=== PATIENT | female | born 1940 | race Caucasian/White ===

== ENCOUNTER 2019-02-18 13:42 | Emergency (ER) | payer MEDICARE, OTHER, SELFPAY ==
[2019-02-18 13:43] VITALS: BP 113/60; PULSE 78; TEMP 36.8; O2SAT 94; BMI 34.7
[2019-02-18 13:46] VITALS: BP 114/53; BP 120/63; BP 131/64; PULSE 77; PULSE 80
--- NOTE | 2019-02-18 13:46 | EKG12_ITS ---
Test Reason : SYNCOPE Blood Pressure : / mmHG Vent. Rate : 072 BPM Atrial Rate : 072 BPM P-R Int : 188 ms QRS Dur : 086 ms QT Int : 406 ms P-R-T Axes : 044 013 080 degrees QTc Int : 444 ms Normal sinus rhythm Nonspecific T wave abnormality Abnormal ECG Confirmed by HEBER BARROS ([id number]), editor producer CIERA LOOMIS ([id number]) on 02/24/2019 2:25:52 PM Referred By: JARRET/MARICHUY Confirmed By:HEBER BARROS
--- NOTE | 2019-02-18 13:47 | ED.VIS.GEN ---
History of Present Illness Chief Complaint: Syncope Informant: Patient Onset: Today Context: Sudden Onset Current Severity: - Maximum Severity: Moderate Narrative: [place]. Patient was in her normal state of health. She does have history of hypertension and remote history of atrial fibrillation. She states that she was feeling mildly lightheaded and nauseated. She states she sat down to eat. She then had a syncopal episode. She did not strike her head. In route, the patient was back to her baseline. She currently denies any symptoms. She denies any chest pain or shortness of breath. She is on antihypertensives, and states sometimes if she takes them on does not eat her blood pressure will get low. She states that she did try to space them out this morning. She [place] 5 [place] and thinks this may be contributing. Prior similar symptoms: Yes Recent Illness/Hospitalization: No Past Medical History - Allergies and Home Meds Allergies/Adverse Reactions: Allergies cephalexin [From Keflex] Adverse Reaction (Verified 02/18/19 14:20) Itching Primary Care Physician: Jason Mcclure [Primary Care Provider] - Prior records reviewed: Yes Past Medical History: - - Hypertension, hyperlipidemia Lives: With Family Alcohol: None Drugs: None Review of Systems General: Denies: Chills, Fever, Sweats Eyes: Denies: Visual changes - bilaterally, Diplopia ENT: Denies: Rhinorrhea, Sore throat Cardiovascular: Denies: Chest pain, Palpitations Respiratory: Denies: Dyspnea, Cough, Dyspnea on exertion Gastrointestinal: Reports: Nausea. Denies: Abdominal pain, Vomiting, Diarrhea, Melena, Hematochezia Genitourinary: Denies: Dysuria, Hematuria, Frequency Musculoskeletal: Denies: Back pain, Extremity Pain Skin: Denies: Rash, Wounds Neurological: Denies: Headache, Weakness, Numbness Physical Exam Inital Vital Signs reviewed: Yes General: Well nourished, Well developed, No Acute Distress Head: Normocephalic, Atraumatic Eyes: Perrl, EOMI ENT: Moist mucous membranes, No rhinorrhea Neck: Supple, Nontender Cardiovascular: Regular rate, Regular rhythm, No murmurs Respiratory: No distress, CTA bilaterally, Chest nontender Abdomen: Soft, Nontender, Nondistended, Normal bowel sounds Back: Nontender, Normal Inspection Extremities: Nontender, No edema Skin: Normal color, No rash Neurological: Alert, Oriented x3, Cranial nerves II-XII grossly intact, Normal Strength, Normal Sensation Psychological: Normal affect, Normal Mood Diagnostic/Tx/Re-eval Chest X-Ray - ED: 1 View, Read by ED Physician, Normal, Heart, Lungs, Mediastinum Clinical Impression(s) from Imaging Studies Chest X-Ray 02/18/19 13:48 IMPRESSION: Normal x-ray examination of the chest. Electronically Signed: Gal Chris, at 14:38 EDT , Service support , Abnormal Lab Results 02/18/19 02/18/19 13:55 13:55 WBC 8.2 RBC 3.58 L Hgb 11.1 L Hct 33.1 L MCV 92.5 MCH 31.0 MCHC 33.5 RDW Std Deviation 42.7 RDW Coeff of [place] 12.7 Plt Count 327 MPV 9.5 Immature Gran % (Auto) 0.200 Neut % (Auto) 65.1 Lymph % (Auto) 17.1 L Rice % (Auto) 15.6 H Eos % (Auto) 1.5 Baso % (Auto) 0.5 Absolute Neuts (auto) 5.3 Absolute Lymphs (auto) 1.40 Nucleated RBC % 0 Sodium 135 L Potassium 3.9 Chloride 101 Carbon Dioxide 27.0 Anion Gap 7 BUN 15 Creatinine 1.12 H Estim Creat Clear Calc 30.69 Est GFR (MDRD) Af Amer 61 Est GFR (MDRD) Non-Af 50 L BUN/Creatinine Ratio 13.4 Glucose 151 H Calcium 8.9 Total Bilirubin 0.20 AST 14 L ALT 21 Alkaline Phosphatase 92 Troponin I < 0.015 Total Protein 7.1 Albumin 3.3 Globulin 3.8 Albumin/Globulin Ratio 0.9 - Rhythm Strip Rhythm Strip: Sinus Rhythm Rate: 70 Ectopy: None - EKG Initial EKG Interpretation: Sinus Rhythm, No Acute Injury Pattern Prior: No Prior - Medical Decision Making Patient presents after syncopal episode while eating. On arrival, she is awake and alert. There was no seizure activity. She had no chest pain. EKG was obtained which showed no acute ischemic change. Patient was observed. Screening labs including cardiac enzymes were normal. Chest x-ray shows no evidence of volume overload. My suspicion is that this is likely vasovagal mediated as the patient had taken her blood pressure medication, was feeling lightheaded, sat down to eat, and then passed out. She wants to go home and I feel that this is reasonable. She had no chest pain or shortness of breath. Her work-up was unremarkable. 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 Impression 1. Vasovagal syncope ED Disposition - Plan for ED Patient: Instructions: SYNCOPE, Vasovagal Referrals: Jason Mcclure [Primary Care Provider] -
--- NOTE | 2019-02-18 13:48 | RAD_ITS ---
STUDY: X-RAY CHEST REASON FOR EXAM: Female, 78 years old. Shortness of breath. TECHNIQUE: Single AP portable view of the chest. COMPARISON: None. FINDINGS: The lungs are clear and expanded. There is no demonstrated pleural abnormality. Normal size heart. Normal mediastinum and aydee. Normal visualized pulmonary arteries. There is atherosclerotic calcification of the aortic arch with tortuosity. Normal visualized thoracic spine. Normal visualized ribs, clavicles, and shoulders. There is no demonstrated abnormality of the visualized soft tissue structures of the upper abdomen. RAD/Chest 1 View (Portable) IMPRESSION: Normal x-ray examination of the chest. Electronically Signed: Gal Perez, at 14:38 EDT , Service support ,
--- NOTE | 2019-02-18 13:55 | NURSING ---
NO OLD EKGS
[2019-02-18 14:03] LABS: Absolute Neutrophil Count 5.3 X10^3/uL (2.0-7.7); Basophil# 0.04 X10^3/uL; Basophil% 0.5 % (0-1); Eosinophil# 0.12 X10^3/uL; Eosinophils% 1.5 % (0-5); Hematocrit 33.1 % (37-47); Hemoglobin 11.1 g/dL (12.0-15.0); Lymphocyte % 17.1 % (19-41); Mean Corp Hgb Conc 33.5 g/dL (32-36); Mean Corpuscular Volume 92.5 fL (81-99); Mean Platelet Vol. 9.5 fl (6.2-12.0); Monocyte# 1.28 X10^3/uL; Monocyte% 15.6 % (0-10); NRBC Flagged by Analyzer 0 % (0-5); Neutrophil # 5.34 X10^3/uL (2.7-7.7); Neutrophil % 65.1 % (47-70); Platelet Count 327 K/mm3 (150-450); RBC Distribution Width CV 12.7 % (11.6-14.6); RBC Distribution Width SD 42.7 fl (35.1-43.9); Red Blood Count 3.58 M/mm3 (4.2-5.4); White Blood Count 8.2 K/mm3 (4.4-11.0)
[2019-02-18] MEDS: 0.9% Normal Saline 1,000 ML 1000 ML IV (14:13)
[2019-02-18 14:14] VITALS: BP 130/57; PULSE 75; RESP 20; O2SAT 96
[2019-02-18 14:18] LABS: ALB/GLOB Ratio 0.9 RATIO (0.9-2.4); AST(SGOT) 14 U/L (15-37); Alanine Aminotransfer ALT/SGPT 21 U/L (13-56); Albumin, Serum 3.3 g/dL (3.2-5.0); Alkaline Phosphatase 92 U/L (45-117); Anion Gap 7 (5-15); BUN 15 mg/dL (7-18); BUN/Creat Ratio 13.4 RATIO (10-20); Calcium,Total 8.9 mg/dL (8.5-10.1); Chloride 101 mmol/L (98-107); Creatinine, Serum 1.12 mg/dL (0.55-1.02); EST Glomerular Filtration Rate 50 mL/min (>60); Est Glom Filt Rate - Afr Amer 61 mL/min (>60); Estimated Creatinine Clearance 30.69 ml/min; Globulin 3.8 g/dL (2.2-4.2); Glucose 151 mg/dL (74-106); Potassium 3.9 mmol/L (3.5-5.1); Protein, Total 7.1 g/dL (6.4-8.2); Sodium Level 135 mmol/L (136-145)
[2019-02-18 15:00] VITALS: BP 145/74; PULSE 86; RESP 23; O2SAT 95
== END 2019-02-18 15:00 | disposition home or self-care (01) ==
LOC: ED 14:19
PROVIDERS: Emergency Provider Emergency Medicine; Family Provider Family Medicine; PCP Family Medicine
DX: R55 Syncope and collapse (principal)
CPT/HCPCS: 71045; 80053; 84484; 85025; 93005; 96360; 99285; J7030